=== PATIENT | male | born 1930 | race Caucasian/White ===

== ENCOUNTER → 2017-08-30 | Outpatient (CLI) | payer OTHER ==
[~2017-08-30] VITALS: Ht 190.5 cm; Wt 88.0 kg
[~2017-08-30] MED LIST: ATORVASTATIN CA40 MG PO; COQ-10100 MG PO; GLUCOSAMINE CH1 EAC2 PO; KRILL OIL 5001 EAC1 PO; MEN'S MULTI-VI1 EACH PO; TOPROL XL25 MG PO; TURMERIC500 M2 PO; VITAMIN D32000 UNI1 PO
== END | disposition home or self-care (01) ==
LOC: GI 08-09 10:13
DX: Z12.11 Encounter for screening for malignant neoplasm of colon (principal); K57.30 Diverticulosis of large intestine without perforation or abscess without bleeding; K64.8 Other hemorrhoids; M81.0 Age-related osteoporosis without current pathological fracture; I10 Essential (primary) hypertension; E78.00 Pure hypercholesterolemia, unspecified; Z85.46 Personal history of malignant neoplasm of prostate; Z98.890 Other specified postprocedural states; Z79.899 Other long term (current) drug therapy
CPT/HCPCS: 62110; 62900